=== PATIENT | female | born 1990 | race Caucasian/White ===

== ENCOUNTER 2020-01-24 14:31 | Emergency (ER) | payer SELFPAY ==
[~2020-01-24] VITALS: Ht 152.4 cm; Wt 68.0 kg
[2020-01-24 14:38] VITALS: Ht 152.4 cm; Wt 68.0 kg
[2020-01-24 15:58] VITALS: BP 114/79
== END 2020-01-24 15:58 | disposition home or self-care (01) ==
LOC: ED 14:31
DX: R05 Cough (principal); R07.89 Other chest pain; Z20.828 Contact with and (suspected) exposure to other viral communicable diseases